=== PATIENT | female | born 1945 | race Hispanic/Latino ===

== ENCOUNTER → 2018-01-08 | Outpatient (CLI) | payer MEDICARE | END | disposition home or self-care (01) | LOC: SHCH 11:00 | PROVIDERS: ATTEND Internal Medicine Cardiovascular Disease | DX: I31.3 Pericardial effusion (noninflammatory) (principal) | CPT/HCPCS: 93306 ==

== ENCOUNTER → 2025-10-13 | Outpatient (CLI) | payer MEDICARE ==
[~2025-10-13] MED LIST: APIX5TAB PO; ATOR10 PO; DILT120C89 PO; ERGO500093 PO; METF-446 PO; METO50 PO; PIOG30TA70 PO
--- NOTE | 2025-10-14 06:31 | HMCIMG ---
Gastric Emptying Scan. EXAM: Nuclear Medicine Gastric Emptying Scan. INDICATION: Abdominal pain, nausea, vomiting. REFERENCE EXAMINATION: None. TECHNIQUE: 1.5 mCi of Tc99m sulfur colloid with scrambled eggs. FINDINGS: Transit of radiopharmaceutical is seen from the stomach into the small bowel. 50% gastric emptying achieved in 85 minutes. IMPRESSION: Scintigraphic findings suggest normal gastric emptying. /Varun
== END | disposition home or self-care (01) ==
LOC: RAH 07:02
PROVIDERS: ATTEND Internal Medicine
DX: R10.9 Unspecified abdominal pain (principal); R11.0 Nausea
CPT/HCPCS: 78264; A9541